=== PATIENT | female | born 1980 | race Caucasian/White ===

== ENCOUNTER 2019-10-09 10:52 | Inpatient (IN) | payer MEDICAID ==
[~2019-10-09] VITALS: Ht 167.6 cm; Wt 71.7 kg
[2019-10-09] MEDS ORDERED: LACTATED RINGERS 1000ML 1,000 ML IV PRN (12:34)
[2019-10-09 12:43] LABS: HEMATOCRIT 33.7 % (36-48); MEAN CORPUSCULAR HGB CONC 33.2 g/dL (32.0-36.0); MEAN CORPUSCULAR VOLUME 93.4 fL (79-99); PLATELET COUNT (AUTO) 219 K/uL (130-400); RED BLOOD CELL COUNT(AUTO) 3.61 MIL/uL (4.00-5.50); RED CELL DISTRIBUTION WIDTH 13.8 % (11.0-15.5); WHITE BLOOD COUNT (AUTO) 14.1 K/uL (4.8-10.8)
[2019-10-09] MEDS ORDERED: OXYTOCIN-LR 20 UNITS/1000 ML 1,000 ML IV SCH ×2 (12:45)
[2019-10-09] MEDS ORDERED: EPHEDRINE SULFATE 50 MG/ML AMPULE IVP PRN (12:45)
[2019-10-09] MEDS ORDERED: ROPIVACAINE 0.2% 100ML VIAL 100 ML EP SCH (12:45)
[2019-10-09] MEDS ORDERED: PROMETHAZINE HCL 25 MG/ML 1ML AMPULE IM PRN (12:45)
[2019-10-09] MEDS ORDERED: NALOXONE HCL 0.4 MG/1 ML ML IV PRN (12:45)
[2019-10-09] MEDS ORDERED: LACTATED RINGERS 500 ML 500 ML IV PRN (12:45)
[2019-10-09] MEDS ORDERED: MEPERIDINE-PF 50 MG/ML SYG IVP PRN (12:45)
[2019-10-09] MEDS ORDERED: OXYTOCIN 10 USP UNITS/ML 20 UNIT in LACTATED RINGERS 1000ML 1,000 ML IV SCH (12:45)
[2019-10-09] MEDS ORDERED: CLINDAMYCIN 600 MG/D5% WATER 50 ML IV ONE (12:49)
[2019-10-09] MEDS ORDERED: FENTANYL CITRATE PF 50 MCG/1 ML 2ML VIAL ONE (13:11)
[2019-10-09] MEDS ORDERED: LIDOCAINE HCL 1% 20 ML VIAL ONE (13:37)
[2019-10-09 14:29] LABS: APPEARANCE,URINE Clear (CLEAR); BILIRUBIN,URINE Negative (NEGATIVE); COLOR,URINE Yellow (YELLOW); GLUCOSE, URINE (UA) Negative (NEGATIVE); KETONES,URINE Negative (NEGATIVE); LEUKOCYTE ESTERASE ,URINE Negative (NEGATIVE); NITRATE,URINE Negative (NEGATIVE); OCCULT BLOOD,URINE Negative (NEGATIVE); PH,URINE 7.5 (5.0-8.0); PROTEIN,URINE Negative (NEGATIVE); UROBILINOGEN,URINE 0.2 mg/dL (0.2-1.0)
[2019-10-09 14:37] LABS: AMPHET/METH SCREEN,URINE NEGATIVE (NEGATIVE); BARBITURATE SCREEN, URINE NEGATIVE (NEGATIVE); BENZODIAZEPINES SCREEN,URINE NEGATIVE (NEGATIVE); CANNABINOID SCREEN,URINE NEGATIVE (NEGATIVE); COCAINE SCREEN,URINE POSITIVE (NEGATIVE); OPIATE SCREEN,URINE NEGATIVE (NEGATIVE); PHENCYCLIDINE SCREEN,URINE NEGATIVE (NEGATIVE)
[2019-10-09] MEDS ORDERED: LANOLIN 30GM OINTMENT TP PRN (15:30)
[2019-10-09] MEDS ORDERED: ACETAMINOPHEN 325 MG TAB PO PRN (15:30)
[2019-10-09] MEDS ORDERED: WITCH HAZEL 1 PAD TP PRN (15:30)
[2019-10-09] MEDS ORDERED: BENZOCAINE/LANOLIN/ALOE VERA 60 ML AEROSOL TP PRN (15:30)
[2019-10-09] MEDS ORDERED: DIPH,PERTUSS(ACELL),TET VAC/PF 0.5 ML VIAL IM PRN (15:30)
[2019-10-09] MEDS ORDERED: MEASLES/MUMPS/RUBELLA VACCINE, LIVE 0.5 ML/VIAL SQ PRN (15:30)
[2019-10-09 17:30] VITALS: BP 114/61
--- NOTE | 2019-10-09 17:30 | NUR ---
REPORT RECEIVED FROM THANH RUBIN AND PATIENT CARE TRANSFERED AT THIS TIME. PATIENT C/O SEVERE CRAMPING AND WAS MEDICATED WITH MOTRIN. PATIENT ISSUED DERMAPLAST SPRAY AND TUCK AND INSTRUCTED ON USE.
--- NOTE | 2019-10-09 19:10 | NUR ---
BEDSIDE REPORT GIVEN TO THANH BALDERRAMA AND PATIENT CARE TRANSFERED AT THIS TIME.
[2019-10-09 19:31] VITALS: BP 112/56
[2019-10-09] MEDS ORDERED: [UNRECOGNIZED DRUG - CODE] PO (20:01)
[2019-10-09] MEDS: ACETAMINOPHEN-CODEINE 300/30MG TAB PO PRN (20:50)
[2019-10-09] MEDS: DOCUSATE SODIUM 100 MG CAP PO SCH (20:50)
[2019-10-09 23:23] VITALS: BP 101/57
[2019-10-09] MEDS: IBUPROFEN 600 MG TABLET PO PRN (23:53)
[2019-10-10] MEDS: CLINDAMYCIN 600 MG/D5% WATER 50 ML IV SCH ×2 (00:45→06:45)
[2019-10-10 03:25] VITALS: BP 114/66
[2019-10-10 06:43] LABS: HEMATOCRIT 31.8 % (36-48); MEAN CORPUSCULAR HEMOGLOBIN 30.9 pg (27.0-33.0); MEAN CORPUSCULAR HGB CONC 32.4 g/dL (32.0-36.0); MEAN CORPUSCULAR VOLUME 95.5 fL (79-99); PLATELET COUNT (AUTO) 172 K/uL (130-400); RED BLOOD CELL COUNT(AUTO) 3.33 MIL/uL (4.00-5.50); RED CELL DISTRIBUTION WIDTH 13.9 % (11.0-15.5); WHITE BLOOD COUNT (AUTO) 12.3 K/uL (4.8-10.8)
[2019-10-10 07:13] LABS: RAPID PLASMA REAGIN NONREACTIVE (NONREACTIVE)
[2019-10-10 07:26] VITALS: BP 95/56
[2019-10-10] MEDS: DOCUSATE SODIUM 100 MG CAP PO SCH ×2 (08:46→21:04)
[2019-10-10] MEDS: ACETAMINOPHEN-CODEINE 300/30MG TAB PO PRN (08:47)
--- NOTE | 2019-10-10 09:50 | NUR ---
PATIENT WAS SEEN BY DR. CAPONE AND MADE AWARE OF NEED TO STAY ANOTHER DAY DUE TO BEING HELD ANOTHER DAY. PATIENT WAS FINE WITH NEED TO STAY.
--- NOTE | 2019-10-10 11:07 | NUR ---
TRIGGER FOR COCAINE POSITIVE REC'D TRIGGER FOR SW CONSULT FOR COCAINE POSITIVE Met with patient at bedside. Some information supplied by momannie Ernst [phone] Patient states she lives alone, " mom prepared for baby' has car seat, bassinet, swing, formula, bottles, diapers; 'mom has everything'. Patient states she does not have a vehicle, currently unemployed- has been a hairstylist in past. Recently quit job w [employer] at 32 weeks - 'too much standing'. States had Public Intoxication charges eight years ago, but no mcc time. Has had trouble with drugs/alcohol for 'a few years now" Went to [facility] in the [facility] last year but did not complete the program-'too restrictive' No medical problems except hx of LLE complex fracture; is indp of ADL's. G-Mom Makenzie Ernst has custody/adoption in process for older daughter, started last yet private adoption, not through CPS ordered arrangement because [facility] made own arrangements. Denies any open CPS case or knowing th ename of any CPS worker. "They would just open them and close them because I was doing what they told me to do". patient states that cocaine uses is 1-3 times weekly and that 'people she knows' can get it for her with very little waiting time; states she thought cocaine was better than marijuana while prganant because it 'clears system faster' [facility] states that she was 'expecting this but hoping it would not happen', states had asked patient while to come and live with her during the preganancy but offer was declined. Mom and patient made aware that the cocaine + positive status would be called in to CPS this afternoon and the SW would come to see them tomorrow. Discharge / disposition is at the decretion of the CPS worker assigned the case. Mom and baby's chart tagged for continuity of care and SW sent email for follow up. Addendum: 10/10/19 at 1129 by DEMI HOPPER RN CM Amended: Links added.
[2019-10-10 11:30] VITALS: BP 102/57
--- NOTE | 2019-10-10 11:44 | NUR ---
NOTE PLACED IN BABY'S CHART "CM REC'D TRIGGER FOR SW CONSULT FOR COCAINE POSITIVE Met w mom, lives alone, unemployed, no vehicle, no father of baby 'he is now in correction, for a very long time" Mom has 7 year old daughter; Gmom has custody/adoptoin in process; Denies any open CPS case or knowing name of any CPS worker. Patient stated uses cocaine 1-3 times weekly and that 'people she knows' can get it for her with very little waiting time; states she thought cocaine was better than marijuana while because it 'clears system faster'. G/Mom and Mom made aware that the cocaine positive status would be called in to CPS this afternoon and SW would come to see them tomorrow. Discharge /disposition will depend on CPS. Both Mom and baby's chart tagged for continuity of care. SW sent email for follow up".
--- NOTE | 2019-10-10 14:15 | NUR ---
PATIENT WAS TRANSFERED FROM ROOM 112 TO 113 DUE TO BACKUP SINK. SINK HAD BEEN CLEANED BUT PATIENT'S MOTHER INDICATED HAVING ASTHMA AND SMELL OF CHLOROX WAS BOTHERING HER. WAS MADE AWARE THEY WOULD BE MOVED TO ANOTHER ROOM.
[2019-10-10] MEDS: IBUPROFEN 600 MG TABLET PO PRN (17:14)
--- NOTE | 2019-10-10 18:09 | NUR ---
called in report to cps ref # [phone] WILL LEAVE EMAIL FOR HAILY SMITHE BENY IN AM ADDENDUM: WHEN TAKING HISTORY FROM PATIENT THIS AM, SHE WAS TEARFUL AND STATED X3 THAT SHE WAS 'SO STUPID' AND 'HAS MESSED UP" WILL PASS ON TO HAILY ALEXANDER TO RE-SCREEN FOR DEPRESSION/ GUILT/ RISK OF SELF HARM Addendum: 10/10/19 at 1812 by DEMI HOPPER RN CM Amended: Links added.
--- NOTE | 2019-10-10 18:35 | NUR ---
call back from isatu douglas CPS intake [phone] aske jessica the drug screen from meconium, advised her not yet avaiable, uds only, states would have vocational case manager come in am to follow up with HAILY/ briseida/ carlo/ etc. Addendum: 10/11/19 at 0819 by DEMI HOPPER RN CM Amended: Links added.
[2019-10-10 19:30] VITALS: BP 121/66
--- NOTE | 2019-10-10 22:00 | NUR ---
PATIENT REQUEST PATIENT REQUESTING PRUNE JUICE TO HELP HAVE A BM. WARM PRUNE JUICE GIVEN. WILL CHECK BACK IN ONE HOUR TO SEE IF PATIENT WAS ABLE TO HAVE A BM.
--- NOTE | 2019-10-10 23:00 | NUR ---
PATIENT BM CHECKED BACK WITH PATIENT TO SEE IF PRUNE JUICE HELPED WITH BM. PATIENT STATED SHE WAS ABLE TO HAVE BM AND STATED RELIEF.
[2019-10-11] VITALS: BP 92/50
[2019-10-11] MEDS: IBUPROFEN 600 MG TABLET PO PRN ×2 (00:34→08:38)
[2019-10-11 04:00] VITALS: BP 95/48
[2019-10-11] MEDS: CLINDAMYCIN 600 MG/D5% WATER 50 ML IV SCH (06:45)
[2019-10-11 07:50] VITALS: BP 104/68
--- NOTE | 2019-10-11 08:10 | NUR ---
ROUNDING EPHRAIM CRONIN CNM AT BEDSIDE TO ASSESS AND TALK TO PT. NEW ORDERS RECEIVED FOR DISCHARGE.
[2019-10-11] MEDS: DOCUSATE SODIUM 100 MG CAP PO SCH (08:37)
--- NOTE | 2019-10-11 08:48 | NUR ---
CPS f/u Sw spoke to Guera James, CPS smoke control supervisor [phone]. Case was assigned to Andria Fowler and she will be seeing pt this am. Guera to have Andria call me before she arrives so that I can escort her in to see pt and baby. Waiting for safety plan
--- NOTE | 2019-10-11 11:45 | NUR ---
CPS Selma Fowler, CPS gareth here meeting with pt and pt's mother Makenzie. Andria,CPS saw baby first and spoke to Annita nursery nurse for update on baby and abstinence scoring. Andria to f/u with SW for safety plan. Pt to dc and baby to remain till Thurs.
[2019-10-11 11:48] VITALS: BP 118/76
[2019-10-11 12:18] LABS: APPEARANCE,URINE CLEAR (CLEAR); BILIRUBIN,URINE NEGATIVE (NEGATIVE); COLOR,URINE YELLOW (YELLOW); GLUCOSE, URINE (UA) NEGATIVE (NEGATIVE); KETONES,URINE NEGATIVE (NEGATIVE); LEUKOCYTE ESTERASE ,URINE SMALL (NEGATIVE); NITRATE,URINE NEGATIVE (NEGATIVE); OCCULT BLOOD,URINE LARGE (NEGATIVE); PROTEIN,URINE TRACE mg/dL (NEGATIVE); UROBILINOGEN,URINE 0.2 mg/dL (0.2-1.0)
[2019-10-11 12:25] LABS: AMPHET/METH SCREEN,URINE NEGATIVE (NEGATIVE); BARBITURATE SCREEN, URINE NEGATIVE (NEGATIVE); BENZODIAZEPINES SCREEN,URINE NEGATIVE (NEGATIVE); CANNABINOID SCREEN,URINE NEGATIVE (NEGATIVE); COCAINE SCREEN,URINE POSITIVE (NEGATIVE); OPIATE SCREEN,URINE POSITIVE (NEGATIVE); PHENCYCLIDINE SCREEN,URINE NEGATIVE (NEGATIVE)
[2019-10-11 12:39] LABS: BACTERIA,URINE Few /HPF (None Seen); RBC,URINE 51-100 /HPF (0-1)
[2019-10-11 12:40] LABS: MUCUS,URINE Few LPF (None Seen); SQUAMOUS EPITHELIAL CELL,UR Moderate /HPF (0-2)
--- NOTE | 2019-10-11 14:35 | NUR ---
SAFETY PLAN Sw met with CPS gareth Andriaroosevelt Fowler [phone] after her meeting with pt and her mother Francesca Ernst. Baby will dc to pt and pt's mother must be present at dc. Pt will move in with mother and will be supervised with baby at all times. CPS to do follow up visit at home once baby is discharged. Sw to contact CPS when dc date and time known, and with results from meconium test for baby.
--- NOTE | 2019-10-11 15:25 | NUR ---
DISCHARGE PT LEFT UNIT VIA WHEELCHAIR, ACCOMPANIED BY MOTHER. DENIED PAIN AND HAD NO COMPLAINTS. TRANSPORTED BY PERSONAL VEHICLE.
[2019-10-12 07:11] LABS: HEPATITIS Bs ANTIGEN SCREEN P Negative (Negative)
[2019-11-30] MEDS ORDERED: IBUP-2784 PO (15:24)
[2019-11-30] MEDS ORDERED: DIPH25TA51 PO (15:24)
== END 2019-10-11 15:25 | disposition home or self-care (01) | DRG 560 ==
LOC: EDH 10:52 → LDH 10:53 → OBSVTOIN 10:53 → WSH 17:30
PROVIDERS: ADMIT Obstetrics & Gynecology; ATTEND Obstetrics & Gynecology
PROC: 10E0XZZ Delivery of Products of Conception, External Approach (ICD-10-PCS; principal; 2019-10-09)
PROC: 0HQ9XZZ Repair Perineum Skin, External Approach (ICD-10-PCS; 2019-10-09)
PROC: 3E0R3BZ Introduction of Anesthetic Agent into Spinal Canal, Percutaneous Approach (ICD-10-PCS; 2019-10-09)
PROC: 00HU33Z Insertion of Infusion Device into Spinal Canal, Percutaneous Approach (ICD-10-PCS; 2019-10-09)
PROC: 3E0234Z Introduction of Serum, Toxoid and Vaccine into Muscle, Percutaneous Approach (ICD-10-PCS; 2019-10-09)
PROC: 3E0134Z Introduction of Serum, Toxoid and Vaccine into Subcutaneous Tissue, Percutaneous Approach (ICD-10-PCS; 2019-10-09)
DX: O70.0 First degree perineal laceration during delivery (principal); Z37.0 Single live birth; Z23 Encounter for immunization; Z3A.38 38 weeks gestation of pregnancy; Z88.0 Allergy status to penicillin
CPT/HCPCS: 36415; 76805; 76819; 80305; 81001; 81003; 85027; 86592; 86701; 86850; 86900; 86901; 87077; 87088; 87186; 87340; 87390; A4314; G0378; J2590; J3010; J3490

== ENCOUNTER 2019-12-01 06:19 | Day surgery (SDC) | payer MEDICAID ==
[2019-11-26 12:18] LABS: BASOPHILS % (AUTO) 0.8 % (0.0-5.0); EOSINOPHILS % (AUTO) 2.8 % (0.0-8.0); HEMATOCRIT 42.5 % (36-48); LYMPHOCYTES % (AUTO) 23.5 % (21.0-51.0); MEAN CORPUSCULAR HEMOGLOBIN 29.7 pg (27.0-33.0); MEAN CORPUSCULAR HGB CONC 31.5 g/dL (32.0-36.0); MEAN CORPUSCULAR VOLUME 94.2 fL (79-99); MONOCYTES % (AUTO) 7.4 % (3.0-13.0); NEUTROPHILS % (AUTO) 65.2 % (40.0-77.0); PLATELET COUNT (AUTO) 270 K/uL (130-400); RED BLOOD CELL COUNT(AUTO) 4.51 MIL/uL (4.00-5.50); RED CELL DISTRIBUTION WIDTH 14.4 % (11.0-15.5)
--- NOTE | 2019-11-30 14:45 | NUR ---
TYPE & SCREEN POSITIVE ANTIBODY ID ANTI-CAA REPORTED TO DR JARAMILLO, NO NEW ORDERS RECEIVED
[2019-11-30 15:19] VITALS: BP 121/60
[2019-12-01] VITALS (16 sets, daily range): BP systolic 83–148; BP diastolic 46–73
[~2019-12-01] VITALS: Ht 170.2 cm; Wt 67.6 kg
[2019-12-01] MEDS: CLINDAMYCIN 600 MG/D5% WATER 50 ML IV SCH ×2 (06:00→08:30)
[~2019-12-01 06:19] MED LIST: CALDOLOR 800MG+NS 250ML 250 ML IV SCH; DIPH25TA51 PO; IBUP-2784 PO; LACTATED RINGERS 1000ML 1,000 ML IV SCH; LEVOFLOXACIN 500 MG/D5W 100 ML 100 ML IV SCH
[2019-12-01] MEDS ORDERED: SUCCINYLCHOLINE 200MG/10ML SYR ONE (07:04)
[2019-12-01] MEDS ORDERED: LIDOCAINE PF 2% 5ML ABBOJECT ONE (07:04)
[2019-12-01] MEDS ORDERED: MIDAZOLAM HCL 1 MG/ML 2ML VIAL ONE (07:05)
[2019-12-01] MEDS ORDERED: PROPOFOL 10 MG/ML 20ML VIAL IV ONE (07:05)
[2019-12-01] MEDS ORDERED: FENTANYL CITRATE PF 50 MCG/1 ML 2ML VIAL ONE (07:05)
[2019-12-01] MEDS ORDERED: ROCURONIUM 10MG/1ML SYR 10 MG/ML ML ONE (07:05)
[2019-12-01] MEDS ORDERED: BUPIVACAINE/PF 0.25% 30ML VIAL IJ ONE (07:33)
[2019-12-01] MEDS ORDERED: NEOSTIGMINE 5MG/5ML SYR IV ONE (08:46)
[2019-12-01] MEDS ORDERED: GLYCOPYRROLATE 1 MG/5 ML SYRINGE ONE (08:46)
[2019-12-01] MEDS ORDERED: ONDANSETRON HCL 4 MG/2 ML VIAL ONE (08:46)
[2019-12-01] MEDS ORDERED: MEPERIDINE-PF 25 MG/ML SYG ONE (09:23)
== END 2019-12-01 10:48 | disposition home or self-care (01) ==
LOC: DAH 06:19
PROVIDERS: ATTEND Obstetrics & Gynecology
DX: Z30.2 Encounter for sterilization (principal); F17.210 Nicotine dependence, cigarettes, uncomplicated
CPT/HCPCS: 36415; 58670; 84703; 85025; 86156; 86850; 86870; 86900; 86901; 87635; A4213; A4215; A4221; A4222; A4223; A4335; A4351; A4663; A4930; C1769 ×2; G0168; J0330; J1741; J1956; J2001; J2175; J2250; J2405; J2704; J2710; J3010; J3490 ×3; J7030; J7120

== ENCOUNTER 2022-02-08 09:41 | Emergency (ER) | payer MEDICAID ==
[~2022-02-08] VITALS: Ht 167.6 cm; Wt 59.9 kg
[~2022-02-08 09:41] MED LIST changes: -CALDOLOR 800MG+NS 250ML 250 ML IV SCH; +FEXO1TAB8 PO; -IBUP-2784 PO; -LACTATED RINGERS 1000ML 1,000 ML IV SCH; -LEVOFLOXACIN 500 MG/D5W 100 ML 100 ML IV SCH; +TRAM100T40 PO
[2022-02-08] MEDS ORDERED: LACTATED RINGERS 1000ML 1,000 ML IV ONE (10:00)
[2022-02-08] MEDS ORDERED: MORPHINE 4 MG SYG IVP ONE ×2 (10:00→14:00)
[2022-02-08] MEDS ORDERED: ONDANSETRON 4MG INJ IVP ONE (10:00)
[2022-02-08 10:14] LABS: BASOPHILS % (AUTO) 0.7 % (0.0-5.0); EOSINOPHILS % (AUTO) 2.4 % (0.0-8.0); HEMATOCRIT 40.2 % (36-48); LYMPHOCYTES % (AUTO) 13.8 % (21.0-51.0); MEAN CORPUSCULAR HGB CONC 34.8 g/dL (32.0-36.0); MEAN CORPUSCULAR VOLUME 86.3 fL (79-99); MONOCYTES % (AUTO) 13.7 % (3.0-13.0); NEUTROPHILS % (AUTO) 69.1 % (40.0-77.0); PLATELET COUNT (AUTO) 271 K/uL (130-400); RED BLOOD CELL COUNT(AUTO) 4.66 MIL/uL (4.00-5.50); RED CELL DISTRIBUTION WIDTH 13.4 % (11.0-15.5); WHITE BLOOD COUNT (AUTO) 11.9 K/uL (4.8-10.8)
[2022-02-08 10:16] LABS: APPEARANCE,URINE SL CLOUDY (CLEAR); BILIRUBIN,URINE NEGATIVE (NEGATIVE); COLOR,URINE YELLOW (YELLOW); GLUCOSE, URINE (UA) NEGATIVE (NEGATIVE); KETONES,URINE NEGATIVE (NEGATIVE); LEUKOCYTE ESTERASE ,URINE NEGATIVE (NEGATIVE); NITRATE,URINE NEGATIVE (NEGATIVE); OCCULT BLOOD,URINE MODERATE (NEGATIVE); PH,URINE 5.5 (5.0-8.0); PROTEIN,URINE NEGATIVE (NEGATIVE); UROBILINOGEN,URINE 0.2 mg/dL (0.2-1.0)
[2022-02-08 10:20] LABS: HCG,QUALITATIVE URINE NEGATIVE (NEGATIVE)
[2022-02-08 10:22] LABS: BACTERIA,URINE Few /HPF (None Seen); WBC,URINE 0-1 /HPF (0-1)
[2022-02-08 10:25] LABS: AMPHET/METH SCREEN,URINE NEGATIVE (NEGATIVE); BARBITURATE SCREEN, URINE NEGATIVE (NEGATIVE); BENZODIAZEPINES SCREEN,URINE NEGATIVE (NEGATIVE); CANNABINOID SCREEN,URINE POSITIVE (NEGATIVE); COCAINE SCREEN,URINE NEGATIVE (NEGATIVE); PHENCYCLIDINE SCREEN,URINE NEGATIVE (NEGATIVE)
[2022-02-08 10:34] LABS: ALBUMIN 3.9 g/dL (3.5-5.0); CREATININE 0.8 mg/dL (0.5-1.5); POTASSIUM 3.4 mmol/L (3.5-5.1); TOTAL PROTEIN, SERUM 7.6 g/dL (6.0-8.3)
[2022-02-08] MEDS ORDERED: IOHEXOL 350 MG/ML 100ML INFUS..BTL IV ONE (12:18)
[2022-02-08] MEDS ORDERED: LORAZEPAM 2 MG/ML 1 ML VIAL IVP ONE (12:30)
[2022-02-08] MEDS ORDERED: LORAZEPAM 0.5 MG TABLET PO ONE (12:30)
[2022-02-08] MEDS ORDERED: CIPR-278 PO (13:43)
[2022-02-08] MEDS ORDERED: LOPE2CAP PO (13:43)
[2022-02-08] MEDS ORDERED: ONDA4TAB10 PO (13:43)
[2022-02-08] MEDS ORDERED: LEVOFLOXACIN 750 MG TABLET PO SCH (14:00)
[2022-02-08 14:27] VITALS: BP 124/78
[2022-02-08] MEDS ORDERED: OXYC-38 PO (14:29)
== END 2022-02-08 14:41 | disposition home or self-care (01) ==
LOC: EDH 09:41
DX: K52.9 Noninfective gastroenteritis and colitis, unspecified (principal); K62.5 Hemorrhage of anus and rectum; F17.200 Nicotine dependence, unspecified, uncomplicated; Z88.0 Allergy status to penicillin
CPT/HCPCS: 99285; 74177; 96374; 96375; 96361; 82270; 84484; 80053; 80305; 83690; 85025; 81025; 36415; 87507; 83630; 81001; J7120; J2405; J2270 ×2; Q9967

== ENCOUNTER 2022-02-26 11:53 | Observation (INO) | payer MEDICAID ==
[~2022-02-26] VITALS: Ht 167.6 cm; Wt 60.6 kg
[~2022-02-26 11:53] MED LIST changes: +CIPR-278 PO; +LOPE2CAP PO; +ONDA4TAB10 PO; +OXYC-38 PO
[2022-02-26] MEDS ORDERED: SOLU-MEDROL 125MG VIAL IVP STA (12:02)
[2022-02-26] MEDS ORDERED: MORPHINE 4 MG SYG ONE (12:14)
[2022-02-26] MEDS ORDERED: ONDANSETRON 4MG INJ ONE ×2 (12:14→15:03)
[2022-02-26 12:21] LABS: BASOPHILS % (AUTO) 0.6 % (0.0-5.0); EOSINOPHILS % (AUTO) 0.8 % (0.0-8.0); HEMATOCRIT 39.6 % (36-48); LYMPHOCYTES % (AUTO) 17.9 % (21.0-51.0); MEAN CORPUSCULAR HEMOGLOBIN 29.8 pg (27.0-33.0); MEAN CORPUSCULAR HGB CONC 33.8 g/dL (32.0-36.0); MEAN CORPUSCULAR VOLUME 88.2 fL (79-99); MONOCYTES % (AUTO) 5.1 % (3.0-13.0); NEUTROPHILS % (AUTO) 75.3 % (40.0-77.0); PLATELET COUNT (AUTO) 418 K/uL (130-400); RED BLOOD CELL COUNT(AUTO) 4.49 MIL/uL (4.00-5.50); RED CELL DISTRIBUTION WIDTH 13.1 % (11.0-15.5); WHITE BLOOD COUNT (AUTO) 10.4 K/uL (4.8-10.8)
[2022-02-26 12:38] LABS: ALBUMIN 3.7 g/dL (3.5-5.0); CREATININE 0.8 mg/dL (0.5-1.5); POTASSIUM 3.7 mmol/L (3.5-5.1); TOTAL PROTEIN, SERUM 7.4 g/dL (6.0-8.3)
[2022-02-26] MEDS ORDERED: LORAZEPAM 0.5 MG TABLET ONE (13:21)
[2022-02-26] MEDS: SOLU-MEDROL 40MG VIAL IVP SCH ×2 (13:30→20:33)
[2022-02-26] MEDS ORDERED: LORAZEPAM 0.5 MG TABLET PO ONE ×2 (13:30→22:00)
[2022-02-26] MEDS ORDERED: IOHEXOL 350 MG/ML 100ML INFUS..BTL IV ONE (14:26)
[2022-02-26] MEDS: 0.9%NACL 1000ML 1,000 ML IV SCH ×2 (14:30→23:30)
[2022-02-26 14:47] LABS: APPEARANCE,URINE CLEAR (CLEAR); BILIRUBIN,URINE NEGATIVE (NEGATIVE); COLOR,URINE YELLOW (YELLOW); GLUCOSE, URINE (UA) NEGATIVE (NEGATIVE); KETONES,URINE >=80 mg/dL (NEGATIVE); LEUKOCYTE ESTERASE ,URINE NEGATIVE (NEGATIVE); NITRATE,URINE NEGATIVE (NEGATIVE); OCCULT BLOOD,URINE SMALL (NEGATIVE); PROTEIN,URINE NEGATIVE (NEGATIVE); UROBILINOGEN,URINE 0.2 mg/dL (0.2-1.0)
[2022-02-26] MEDS ORDERED: MORPHINE 2 MG SYG ONE (15:03)
[2022-02-26 15:06] LABS: HCG,QUALITATIVE URINE NEGATIVE (NEGATIVE)
[2022-02-26] MEDS ORDERED: ONDANSETRON 4MG INJ IVP ONE (15:30)
[2022-02-26] MEDS ORDERED: MORPHINE 2 MG SYG IVP ONE (15:30)
[2022-02-26 16:11] LABS: BACTERIA,URINE Few /HPF (None Seen); SQUAMOUS EPITHELIAL CELL,UR Moderate /HPF (0-2); WBC,URINE 0-1 /HPF (0-1)
[2022-02-26 17:40] VITALS: BP 103/66
[2022-02-26] MEDS: MORPHINE 2 MG SYG IVP PRN (17:56)
[2022-02-26] MEDS ORDERED: ONDANSETRON 4MG INJ IVP PRN (18:00)
[2022-02-26 20:25] VITALS: BP 99/64
[2022-02-26] MEDS ORDERED: KETOROLAC 15MG/ML VIAL (15MG/ML) IV ONE (21:00)
[2022-02-26] MEDS ORDERED: FAMOTIDINE 20MG VIAL IV SCH (21:00)
[2022-02-26 21:11] VITALS: BP 99/56
[2022-02-27 00:23] VITALS: BP 100/65
[2022-02-27] MEDS: MORPHINE 2 MG SYG IVP PRN (03:39)
[2022-02-27] MEDS: SOLU-MEDROL 40MG VIAL IVP SCH (05:25)
[2022-02-27 05:44] VITALS: BP 99/60
== END 2022-02-27 06:10 | disposition left against medical advice (07) ==
LOC: EDH 11:53 → EDHIP 11:54 → UNDOADMOB 13:11 → 4AH 17:11 → EDHIP 17:11 → UNDODISOB 02-27 06:10
PROVIDERS: ADMIT Hospitalist; ATTEND Hospitalist
DX: K52.9 Noninfective gastroenteritis and colitis, unspecified (principal); K92.2 Gastrointestinal hemorrhage, unspecified; F41.8 Other specified anxiety disorders; F43.10 Post-traumatic stress disorder, unspecified; Z53.29 Procedure and treatment not carried out because of patient's decision for other reasons; Z88.0 Allergy status to penicillin; Z79.899 Other long term (current) drug therapy
CPT/HCPCS: 96374; 96376 ×2; 96361; 96375; 99285; 80053; 84703; 83690; 85025; 85651; 86255 ×3; 86140; 82270; 81001; 81025; 36415; 74177; G0378 ×17; S0028; J2930; J2405 ×2; J2920 ×2; J2270; J1885; Q9967; J3490

== ENCOUNTER 2024-06-06 16:08 | Emergency (ER) | payer BC, MEDICAID ==
[~2024-06-06] VITALS: Ht 167.6 cm; Wt 65.3 kg
[2024-06-06 16:08] VITALS: BP 111/56; PULSE 84; RESP 14; TEMP 98.2
[~2024-06-06 16:08] MED LIST changes: -CIPR-278 PO; -DIPH25TA51 PO; -FEXO1TAB8 PO; -LOPE2CAP PO; +METR-172 PO; +ONDA-243 PO; -ONDA4TAB10 PO; -OXYC-38 PO; +PANT40TA PO
[2024-06-06] MEDS: ketOROlac 15MG/ML VIAL (15MG/ML) IM STA (17:16)
[2024-06-06] MEDS: HYDROcodone/APAP 5/325 1 TAB TABLET PO STA (17:17)
--- NOTE | 2024-06-06 18:19 | ERN ---
ED Note History of Present Illness Stated Complaint: LEFT HAND INJURY Chief Complaint: Hand Problem/Injury Time Seen by MD: 16:20 Time Seen by Midlevel: 16:25 Dictation: 43-year-old female coming in complaining of left hand pain. Patient states she fell on three stairs on Friday. States she has been taking ibuprofen but still having some pain. Medical history of colitis. Allergies: Coded Allergies: Penicillins (Unverified Allergy, Unknown, 10/09/19) Home Meds Active Scripts Pantoprazole Sodium (Protonix) 40 Mg Tablet.dr, 40 MG PO BID for 30 Days, #60 TAB Prov:MELISSA MCCARTHY MANDREL PRESS HAND 03/08/22 Ondansetron (Ondansetron Odt) 4 Mg Tab.rapdis, 4 MG PO [id number] PRN for NAUSEA, #10 TAB Prov:MELISSA MCCARTHY MANDREL PRESS HAND 03/08/22 Metronidazole (Metronidazole) 500 Mg Tablet, 500 MG PO TID for 7 Days, #21 TAB Prov:MELISSA MCCARTHY NP 03/08/22 Reported Medications Tramadol HCl (Tramadol HCl) 100 Mg Tablet, 100 MG PO AD PRN for PAIN LEVEL 1 TO 5, TAB 03/15/21 Past Medical History Past Medical History: Anxiety, Depression Additional Past Medical Hx: PTSD, COLITIS Surgical History: Other, BTL Surgical History Other: ARM, LEG Social History: Smokers, ETOH History: Not Applicable Review of System Dictation Constitutional: Negative for fever,chills, and weight loss Eyes: Negative for injury, pain,redness, and discharge ENT: Negative for injury,pain or swelling Cardiovascular: Negative for chest pain, palpitations, and edema Respiratory: Negative for shortness of breath, cough, and wheezing, Abdomen/GI: Negative for abdominal pain, nausea, vomiting, diarrhea, and constipation Back: Negative for injury and pain : Negative for injury, bleeding and discharge MS/Extremity: Complaining of left hand pain Skin: Negative for rash, and discoloration Neuro: Negative for headache, weakness, numbness, tingling, and seizure Psych: Negative for suicide ideation, homicidal ideation, and hallucinations Review of Systems: was completed Initial Vital Sign VS Vital Signs Date Time Temp Pulse Resp B/P (MAP) Pulse Ox O2 Delivery O2 Flow Rate FiO2 06/06/24 16:08 98.2 84 14 111/56 99 Room Air 0 Physical Exam Dictation General: awake, alert, NAD Head/Face: Normocephalic, atraumatic Eyes: PERRL, EOMI, vision at baseline ENT: oral cavity clear, TMs clear, no signs of infection Neck: Trachea midline, supple, no nuchal rigidity Cardiovascular: RRR, normal S1/S2, No MRGs, no JVD Respiratory: CTAB, no respiratory distress, No rales or wheezes Abdomen: Soft, non-tender, non-distended, normal bowel sounds, no guarding or rebound. Skin: Warm, dry, normal turgor, no rash MS/Extremity: Pulses equal, no cyanosis, neurovascular intact, FROM, old bruise noted to the left dorsal aspect of the hand, Neuro: COAx4, GCS 15, strength 5/5, CN 2-12 intact, normal cerebellar exam, normal gait, Psych: Normal behavior, mood, and affect normal ED Course ED Course Orders Procedure Category Date Status Time Hand 3+Vws Lt RAD 06/06/24 Taken 17:08 Hydrocodone/Apap PHA 06/06/24 Complete 5/325 ([place] 5/325mg) 17:08 Ketorolac PHA 06/06/24 Complete Tromethamine 15mg/Ml 17:08 Current Medications Medications (Trade) Dose Ordered Sig/Jerson Route PRN Reason Start Time Stop Time Status Last Admin Dose Admin Acetaminophen/ Hydrocodone Bitart (NORco 5/325MG) 1 tab ONCE STAT PO 06/06/24 17:08 06/06/24 17:10 DC 06/06/24 17:17 Ketorolac Tromethamine (toRADol) 15 mg ONCE STAT IM 06/06/24 17:08 06/06/24 17:10 DC 06/06/24 17:16 Vital Signs Date Time Temp Pulse Resp B/P (MAP) Pulse Ox O2 Delivery O2 Flow Rate FiO2 06/06/24 16:08 98.2 84 14 111/56 99 Room Air 0 Medical Decision Making MDM MDM: 43-year-old female coming in complaining of left hand pain. Patient states she fell on three stairs on Friday. States she has been taking ibuprofen but still having some pain. Medical history of colitis. There is old healing bruise to the left dorsal aspect of the hand. Patient does have range of motion but complains of pain. Radial pulses intact, extremities warm to touch, cap refill less than 2 seconds. X-ray shows no acute abnormality, interpreted by me. Differential diagnosis: Hand contusion, metatarsal fractures Rationale: Tests considered and ordered secondary to shared decision making include: Previous outside records reviewed: Old ER visits. Risk of complication and/or morbidity or mortality of patient management: None Medications-Per medication reconciliation Need for hospitalization: Patient does not meet criteria for hospitalization. Need for emergency major/minor surgery: No There are no social concerns with this patient. Prescription drug management Prescriptions will include symptomatic care Patient's prior external medical records from other ER visits were reviewed by me as indicated. Prior testing and results from previous visits were reviewed. Prior tests were taken into account with medical decision making and resource utilization, independent historian/historians were used to obtain complete medical history. I independently interpreted the test that were performed, results were reviewed by me and considered findings on radiology if ordered. Medical management and examination interpretation discussions were had by me with other qualified healthcare professionals as indicated for the patient's care. DX & DISP Disposition: Discharge Departure Impression: Primary Impression: Hand contusion Condition: Stable Additional Instructions: You can take Tylenol for pain management and if needed you can add ibuprofen if you can tolerate it due to your colitis. Follow up with your primary doctor in 1-2 days. You can elevate and ice your hand to help bring down the swelling and inflammation. Return to ER if symptoms worsen. Referrals: LOU ROBERTS DO (PCP) Time of Disposition: 18:18 I have reviewed the case, and I agree with, Diagnosis and Plan CORINA KELLY NP Jun 06, 2024 18:19
--- NOTE | 2024-06-06 18:49 | NUR ---
PATIENT LEFT AT THIS TIME. PATIENT STATED THAT SHE DID NOT WANT TO WAIT FOR SPLINT. PATIENT ADVISED THAT SPLINT IS RECOMMENDED. PATIENT PROCEEDED TO BECOME MORE ANGRY AND LEFT EMERGENCY DEPARTMENT.
--- NOTE | 2024-06-06 19:19 | HMCIMG ---
HAND 3+VWS LT CLINICAL HISTORY: trauma COMPARISON: None TECHNIQUE: AP lateral and oblique images were obtained. FINDINGS: No obvious fracture or dislocation. No joint effusion. The soft tissues appear unremarkable. No radiopaque foreign bodies. IMPRESSION: No acute findings.
== END 2024-06-06 19:05 | disposition home or self-care (01) ==
LOC: EDH 16:08
DX: S60.222A Contusion of left hand, initial encounter (principal); F17.200 Nicotine dependence, unspecified, uncomplicated; Z04.3 Encounter for examination and observation following other accident; Z88.0 Allergy status to penicillin; Z98.51 Tubal ligation status; W10.8XXA Fall (on) (from) other stairs and steps, initial encounter; Y93.89 Activity, other specified; Y92.89 Other specified places as the place of occurrence of the external cause; Y99.8 Other external cause status
CPT/HCPCS: 99284; 73130; 96372; J1885